=== PATIENT | male | born 1935 | race Asian ===

== ENCOUNTER 2023-07-22 17:25 | Inpatient (IN) | payer MEDICARE, OTHER ==
[~2023-07-22] VITALS: Ht 160 cm; Wt 45.8 kg
[2023-07-22] MEDS ORDERED: HALOPERIDOL LACTATE 5 MG/1 ML VIAL IM ONE (20:15)
[2023-07-22] MEDS ORDERED: HALOPERIDOL LACTATE 5 MG/1 ML VIAL ONE (20:16)
[2023-07-22] MEDS ORDERED: LORAZEPAM 2 MG/1 ML VIAL IM ONE (22:00)
[2023-07-22] MEDS ORDERED: LORAZEPAM 2 MG/1 ML VIAL ONE (22:06)
[2023-07-22 22:30] LABS: DIFFERENTIAL COMMENT 0
[2023-07-22 22:31] LABS: CALCIUM 9.5 mg/dL (8.5-10.1); CARBON DIOXIDE 26 mmol/L (21-32); CHLORIDE 105 mmol/L (98-107); CREATININE 1.3 mg/dL (0.6-1.3); GLUCOSE 99 mg/dL (74-106); SODIUM SERUM 142 mmol/L (136-145); UREA NITROGEN, BLOOD 21 mg/dL (7-18)
[2023-07-22 22:32] LABS: AMMONIA 13 umol/L (11-32)
[2023-07-22 22:36] LABS: BASOPHILS % (AUTO) 0.2 % (0.0-2.0); EOSINOPHILS # (AUTO) 0.5 K/uL (0.0-0.7); EOSINOPHILS % (AUTO) 5.2 % (0.0-7.0); HEMATOCRIT 32.3 % (36.7-47.1); HEMOGLOBIN 10.6 g/dL (12.5-16.3); LYMPHOCYTES # (AUTO) 1.9 K/uL (0.8-4.8); LYMPHOCYTES % (AUTO) 18.1 % (20.5-51.5); MEAN CORPUSCULAR HEMOGLOBIN 31.6 uug (23.8-33.4); MEAN CORPUSCULAR HGB CONC 33 g/dL (32.5-36.3); MEAN CORPUSCULAR VOLUME 96.6 fL (73.0-96.2); MONOCYTES # (AUTO) 0.8 K/uL (0.1-1.30); MONOCYTES % (AUTO) 7.8 % (0.0-11.0); NEUTROPHILS # (AUTO) 7.2 K/uL (1.8-8.9); NEUTROPHILS % (AUTO) 68.7 % (38.5-71.5); PLATELET COUNT (AUTO) 172 K/uL (152-348); RED BLOOD CELL COUNT(AUTO) 3.34 MIL/uL (4.06-5.63); WHITE BLOOD COUNT (AUTO) 10.4 K/uL (3.6-10.2)
[2023-07-22 22:44] LABS: THYROID STIMULATING HORMONE 1.167 mIU/mL (0.358-3.740)
[2023-07-22 22:48] LABS: ALBUMIN 2.9 g/dL (3.4-5.0); ALKALINE PHOSPHATASE 91 U/L (50-136); ASPARTATE AMINOTRANSFERASE 18 U/L (15-37); BILIRUBIN,DIRECT 0.2 mg/dL (0.0-0.2); BILIRUBIN,TOTAL 0.4 mg/dL (0.2-1.0); TOTAL PROTEIN, SERUM 7.6 g/dL (6.4-8.2)
[2023-07-22 22:49] LABS: ACETAMINOPHEN < 2.0 ug/mL (10-30); ALANINE AMINOTRANSFERASE < 6 U/L (16-63)
[2023-07-22 22:53] LABS: ETHANOL < 3 MG/DL (0-10)
[2023-07-23 02:51] LABS: *BILIRUBIN,URIN NEGATIVE (NEGATIVE); *COLOR,URINE YELLOW (YELLOW); *KETONES,URINE TRACE (NEGATIVE); *PROTEIN,URINE 1+ (NEGATIVE); *UROBILINOGEN,URINE 0.2 E.U./dl (NORMAL); LEUKOCYTE ESTERASE ,URINE TRACE (NEGATIVE); NITRITE, URINE POSITIVE (NEGATIVE); UGLUCOSE NEGATIVE (NEGATIVE)
[2023-07-23 03:05] LABS: *BLOOD, URINE TRACE (NEGATIVE); *CLARITY,URINE SLIGHTLY CLOUDY (CLEAR)
[2023-07-23 03:13] LABS: *AMPHETAMINE, URINE NEGATIVE (NEGATIVE); *BARBITURATE, URINE NEGATIVE (NEGATIVE); *BENZODIAZEPINE, URINE NEGATIVE (NEGATIVE); *CANNABINOID, URINE NEGATIVE (NEGATIVE); *COCCAINE, URINE NEGATIVE (NEGATIVE); *OPIATE, URINE NEGATIVE (NEGATIVE); *PHENCYCLIDINE SCREEN,URINE NEGATIVE (NEGATIVE)
[2023-07-23] MEDS ORDERED: CEFTRIAXONE 1 G VIAL IM ONE (03:15)
[2023-07-23] MEDS ORDERED: CEFD300C3 PO (03:16)
[2023-07-23] MEDS ORDERED: CEFTRIAXONE 1 G VIAL ONE (03:16)
[2023-07-23 03:51] LABS: FENTANYL, URINE NEGATIVE (NEGATIVE)
[2023-07-23] MEDS ORDERED: LOSA25TA3 PO (03:53)
[2023-07-23] MEDS ORDERED: MIRT7.5T10 (03:53)
[2023-07-23] MEDS ORDERED: BENZ1TAB7 (03:53)
[2023-07-23] MEDS ORDERED: DONE5TAB7 (03:53)
[2023-07-23] MEDS ORDERED: VALP250C3 PO (03:53)
[2023-07-23] MEDS ORDERED: CARB-35 (03:53)
[2023-07-23] MEDS ORDERED: ATOR40TA PO (03:53)
[2023-07-23] MEDS ORDERED: RISP0.5T5 (03:53)
[2023-07-23] MEDS ORDERED: AMLO-212 PO (03:53)
[2023-07-23] MEDS ORDERED: QUET50TA (03:53)
[2023-07-23] MEDS ORDERED: ASPI81TA31 PO (03:53)
[2023-07-23 03:59] LABS: BACTERIA,URINE MANY /HPF (NONE SEEN); SQUAMOUS EPITHELIAL CELL,UR NONE SEEN /HPF (NONE SEEN); WBC,URINE 20-50 /HPF (0-3)
[2023-07-23] MEDS ORDERED: LORAZEPAM 2 MG/1 ML VIAL ONE (05:59)
[2023-07-23] MEDS ORDERED: LORAZEPAM 2 MG/1 ML VIAL IM ONE (06:00)
[2023-07-23] MEDS ORDERED: ACETAMINOPHEN 325 MG TABLET PO PRN (06:15)
[2023-07-23] MEDS ORDERED: MAG HYDROX/AL HYDROX/SIMETH 30 ML LIQUID UDC PO PRN (06:15)
[2023-07-23] MEDS ORDERED: MAGNESIUM HYDROXIDE 30 ML LIQUID UDC PO PRN (06:15)
[2023-07-23 07:51] VITALS: BP 101/42; TEMP 98.2; O2SAT 99
[2023-07-23 15:21] VITALS: BP 108/48; TEMP 98.2; O2SAT 100
[2023-07-23] MEDS ORDERED: ACET325T53 PO (15:57)
[2023-07-23] MEDS ORDERED: MULT-213 PO (15:57)
[2023-07-23] MEDS ORDERED: VALPROIC ACID 250 MG CAPSULE PO SCH (17:00)
[2023-07-23] MEDS: CARBIDOPA/LEVODOPA 25-100MG TABLET PO SCH (17:25)
[2023-07-23 19:52] VITALS: BP 98/52; TEMP 98.3; O2SAT 99
[2023-07-23] MEDS: REMEDY ESSENTIAL ZINC PASTE 113 GM TOP SCH (20:21)
[2023-07-23] MEDS: ATORVASTATIN 40 MG TABLET PO SCH (20:21)
[2023-07-23] MEDS: CEphaleXIN 500 MG CAPSULE PO SCH (21:19)
[2023-07-23] MEDS: LORAZEPAM 0.5 MG TABLET PO PRN (22:02)
[2023-07-23] MEDS: risperiDONE 0.5 MG TABLET PO SCH (22:19)
[2023-07-23] MEDS: TEMAZEPAM 7.5 MG CAPSULE PO PRN (23:23)
[2023-07-24] MEDS: CEphaleXIN 500 MG CAPSULE PO SCH ×3 (06:07→22:34)
[2023-07-24 08:01] VITALS: BP 134/56; TEMP 98; O2SAT 100
[2023-07-24] MEDS: risperiDONE 0.5 MG TABLET PO SCH ×3 (09:31→17:33)
[2023-07-24] MEDS: LOSARTAN POTASSIUM 25 MG TABLET PO SCH (09:32)
[2023-07-24] MEDS: CARBIDOPA/LEVODOPA 25-100MG TABLET PO SCH ×3 (09:32→17:33)
[2023-07-24] MEDS: ASPIRIN 81 MG TAB.CHEW PO SCH (09:32)
[2023-07-24] MEDS: BENZTROPINE MESYLATE 1 MG TABLET PO SCH ×2 (09:33→17:34)
[2023-07-24] MEDS: REMEDY ESSENTIAL ZINC PASTE 113 GM TOP SCH ×2 (09:34→20:37)
[2023-07-24] MEDS: AMLODIPINE 5 MG TABLET PO SCH (09:35)
[2023-07-24] MEDS: VALPROIC ACID 250 MG/5 ML LIQUID UDC PO SCH ×2 (09:35→17:33)
[2023-07-24 16:01] VITALS: BP 126/55; TEMP 97.9; O2SAT 98
[2023-07-24 20:00] VITALS: BP 103/44; TEMP 97.8; O2SAT 99
[2023-07-24] MEDS: ATORVASTATIN 40 MG TABLET PO SCH (20:29)
[2023-07-24] MEDS: TEMAZEPAM 7.5 MG CAPSULE PO PRN (20:30)
[2023-07-25] MEDS: CEphaleXIN 500 MG CAPSULE PO SCH ×3 (06:55→21:18)
[2023-07-25 07:58] VITALS: BP 143/62; TEMP 97.9; O2SAT 96
[2023-07-25] MEDS: LOSARTAN POTASSIUM 25 MG TABLET PO SCH (08:27)
[2023-07-25] MEDS: VALPROIC ACID 250 MG/5 ML LIQUID UDC PO SCH ×2 (08:27→17:02)
[2023-07-25] MEDS: BENZTROPINE MESYLATE 1 MG TABLET PO SCH ×2 (08:28→17:02)
[2023-07-25] MEDS: LORAZEPAM 0.5 MG TABLET PO PRN (08:28)
[2023-07-25] MEDS: risperiDONE 0.5 MG TABLET PO SCH ×3 (08:28→17:02)
[2023-07-25] MEDS: AMLODIPINE 5 MG TABLET PO SCH (08:28)
[2023-07-25] MEDS: ASPIRIN 81 MG TAB.CHEW PO SCH (08:28)
[2023-07-25] MEDS: CARBIDOPA/LEVODOPA 25-100MG TABLET PO SCH ×3 (08:28→17:02)
[2023-07-25] MEDS: REMEDY ESSENTIAL ZINC PASTE 113 GM TOP SCH ×2 (08:29→21:19)
[2023-07-25 16:07] VITALS: BP 117/58; TEMP 98; O2SAT 96
[2023-07-25 19:51] VITALS: BP 121/59; TEMP 98.1; O2SAT 95
[2023-07-25] MEDS: ATORVASTATIN 40 MG TABLET PO SCH (21:18)
[2023-07-25] MEDS: TEMAZEPAM 7.5 MG CAPSULE PO PRN (21:19)
[2023-07-26 07:47] VITALS: BP 112/46; TEMP 98.1; O2SAT 94
[2023-07-26] MEDS: CARBIDOPA/LEVODOPA 25-100MG TABLET PO SCH ×3 (08:33→16:02)
[2023-07-26] MEDS: VALPROIC ACID 250 MG/5 ML LIQUID UDC PO SCH ×2 (08:33→16:02)
[2023-07-26] MEDS: ASPIRIN 81 MG TAB.CHEW PO SCH (08:33)
[2023-07-26] MEDS: AMLODIPINE 5 MG TABLET PO SCH (08:34)
[2023-07-26] MEDS: BENZTROPINE MESYLATE 1 MG TABLET PO SCH ×2 (08:34→16:02)
[2023-07-26] MEDS: LOSARTAN POTASSIUM 25 MG TABLET PO SCH (08:34)
[2023-07-26] MEDS: risperiDONE 0.5 MG TABLET PO SCH ×3 (08:34→16:02)
[2023-07-26] MEDS: REMEDY ESSENTIAL ZINC PASTE 113 GM TOP SCH (08:35)
[2023-07-26] MEDS: CEphaleXIN 500 MG CAPSULE PO SCH (13:49)
[2023-07-26 16:03] VITALS: BP 93/48; TEMP 97.9; O2SAT 94
[2023-07-27] MEDS ORDERED: CARB1TAB21 PO (16:42)
== END 2023-07-26 19:34 | disposition short-term general hospital (02) | DRG 885 ==
LOC: ER 17:28 → GPS 07-23 05:57
PROVIDERS: ADMIT Psychiatry & Neurology Psychosomatic Medicine; ATTEND Nurse Practitioner Acute Care
DX: F29 Unspecified psychosis not due to a substance or known physiological condition (principal); G92.8 Other toxic encephalopathy; N39.0 Urinary tract infection, site not specified; F02.811 Dementia in other diseases classified elsewhere, unspecified severity, with agitation; F02.818 Dementia in other diseases classified elsewhere, unspecified severity, with other behavioral disturbance; E44.0 Moderate protein-calorie malnutrition; Z68.1 Body mass index [BMI] 19.9 or less, adult; I67.9 Cerebrovascular disease, unspecified; R91.8 Other nonspecific abnormal finding of lung field; R53.1 Weakness; G20.A1 Parkinson's disease without dyskinesia, without mention of fluctuations; E78.5 Hyperlipidemia, unspecified; G40.909 Epilepsy, unspecified, not intractable, without status epilepticus; R13.10 Dysphagia, unspecified; J32.0 Chronic maxillary sinusitis; Z79.899 Other long term (current) drug therapy; I10 Essential (primary) hypertension; E88.09 Other disorders of plasma-protein metabolism, not elsewhere classified; Z91.148 Patient's other noncompliance with medication regimen for other reason; Z91.199 Patient's noncompliance with other medical treatment and regimen due to unspecified reason; Z87.828 Personal history of other (healed) physical injury and trauma
CPT/HCPCS: 36415; 70450; 71045; 84443; 84484; 85025; 85730; 93005; A4663; C1758; G0480; J0696; J1630; J2060